=== PATIENT | male | born 1990 | race Caucasian/White ===

== ENCOUNTER 2022-06-07 16:57 | Emergency (ER) | payer OTHER, MEDICAID ==
[~2022-06-07] VITALS: Ht 180 cm; Wt 114.0 kg
[~2022-06-07 16:57] MED LIST: AZIT-21 PO; CLONAZEPAM; HYDR50CA3 PO; NAPR-243 PO; ONDAN4ODT PO; PRM25T PO; SLEEPING PILL; SULF1TAB38 PO; TRAM-21 PO; TRM50T PO
[2022-06-07] MEDS ORDERED: HYDROcodone/APAP 7.5 MG/325 MG (LORTAB, LORCET PLUS) TABLET PO STA (17:43)
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
[2022-06-07] MEDS ORDERED: ACHD5005 PO (19:04)
[2022-06-07] MEDS ORDERED: IBUP-1780 PO (19:04)
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
[2022-06-07 19:23] VITALS: BP 126/84
== END 2022-06-07 19:23 | disposition home or self-care (01) ==
LOC: EDUNIT# 16:57 → ER 16:59
DX: S46.912A Strain of unspecified muscle, fascia and tendon at shoulder and upper arm level, left arm, initial encounter (principal); S80.212A Abrasion, left knee, initial encounter; M25.552 Pain in left hip; M25.522 Pain in left elbow; F17.210 Nicotine dependence, cigarettes, uncomplicated; Z28.310 Unvaccinated for COVID-19; V89.2XXA Person injured in unspecified motor-vehicle accident, traffic, initial encounter; Y92.410 Unspecified street and highway as the place of occurrence of the external cause
CPT/HCPCS: 73030; 73562